=== PATIENT | male | born 1940 | race Caucasian/White ===

== ENCOUNTER 2020-06-11 04:29 | Day surgery (SDC) | payer BC ==
[2020-06-10 17:47] VITALS: BMI 26.4
[2020-06-11 09:54] LABS: BASO % 0.5 % (0-2.0); HEMATOCRIT 44.4 % (35.4-49); LYMPH % 31.7 % (8-40); MCH 30.8 pg (25.7-33.7); MCHC 33.8 g/dl (32.0-35.9); MEAN CELL VOLUME 91.3 fl (80-96); MEAN PLT VOLUME 6.7 fl (7.5-11.1); MONO % 12.1 % (3.8-10.2); NEUT % 50.7 % (42.8-82.8); PLATELET COUNT 151 K/MM3 (134-434); RBC 4.86 M/mm3 (4.00-5.60); RDW 14.5 % (11.9-15.9); WHITE BLOOD COUNT 2.8 K/mm3 (4.0-10.0)
[2020-06-11 10:01] LABS: INR 0.94 (0.83-1.09); PROTHROMBIN TIME (PATIENT) 11.4 SEC (9.7-13.0)
[2020-06-11 14:24] VITALS: BP 105/65; PULSE 80; TEMP 98.2
== END 2020-06-11 14:45 | disposition home or self-care (01) ==
LOC: JRADIR 04:29
PROVIDERS: ATTEND Internal Medicine
PROC: 07DH3ZX Extraction of Right Inguinal Lymphatic, Percutaneous Approach, Diagnostic (ICD-10-PCS; principal; 2020-06-11)
DX: C7A.1 Malignant poorly differentiated neuroendocrine tumors (principal); R60.0 Localized edema
CPT/HCPCS: 36415; 38505; 76942-TC; 85025; 85610; 88305-TC; 88341-TC; 88342-TC; 93970-TC